=== PATIENT | female | born 2000 | race Caucasian/White ===

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

== ENCOUNTER 2019-03-05 11:00 | Emergency (ER) | payer MEDICAID ==
--- NOTE | 2019-03-05 11:15 | ER Document Report ---
ED Medical Screen (RME) - General Chief Complaint: Itching Stated Complaint: BODY PAIN,ITCHING Time Seen by Provider: 03/05/19 11:12 Mode of Arrival: Ambulatory Information source: Patient Notes: Patient is an otherwise healthy 18-year-old female presenting to the emergency department chief complaint of all over body aches and itching. Patient does report recently being treated for a kidney infection and had started multiple new medications. Denies any nausea, vomiting, diarrhea, cough congestion or sore throat. Patient does not appear to be in any acute distress, she is breathing equal and unlabored, ambulating with steady gait. I have greeted and performed a rapid initial assessment of this patient. A comprehensive ED assessment and evaluation of the patient, analysis of test results and completion of the medical decision making process will be conducted by additional ED providers. I have specifically instructed the patient or family members with the patient to immediately return to any nursing staff should anything change in the patient's condition or with their chief complaint. This medical record was dictated with voice recognizing software. There may be grammatical, syntax errors that are unintended. TRAVEL OUTSIDE OF THE [place] IN LAST 30 DAYS: No - Related Data Allergies/Adverse Reactions: Sulfa (Sulfonamide Antibiotics) Allergy (Verified 03/05/19 11:05) Past Medical History - Social History Chew tobacco use (# tins/day): No Frequency of alcohol use: Social Drug Abuse: None Renal/ Medical History: Denies: Hx Peritoneal Dialysis Past Surgical History: Reports: Hx Tonsillectomy Physical Exam - Vital signs Vitals: Temp Pulse Resp BP Pulse Ox 97.7 F 69 18 107/62 99 03/05/19 11:05 03/05/19 11:05 03/05/19 11:05 03/05/19 11:05 03/05/19 11:05 Course - Vital Signs Vital signs: Temp Pulse Resp BP Pulse Ox 97.7 F 69 18 107/62 99 03/05/19 11:05 03/05/19 11:05 03/05/19 11:05 03/05/19 11:05 03/05/19 11:05
[2019-03-05 11:34] LABS: ABSOLUTE EOSINOPHILS # (AUTO) 0.1 10^3/uL (0.0-0.6); ABSOLUTE LYMPHOCYTES (AUTO) 2.4 10^3/uL (0.5-4.7); ABSOLUTE MONOCYTES (AUTO) 0.6 10^3/uL (0.1-1.4); ABSOLUTE NEUT (AUTO) 3.4 10^3/uL (1.7-8.2); BASOPHILS % (AUTO) 0.7 % (0-2); EOSINOPHILS % (AUTO) 1.1 % (0-6); HEMATOCRIT 38.4 % (36.0-47.0); HEMOGLOBIN 12.8 g/dL (12.0-15.5); LYMPHOCYTES % (AUTO) 36.4 % (13-45); MEAN CORPUSCULAR HEMOGLOBIN 29.9 pg (27.0-33.4); MEAN CORPUSCULAR HGB CONC 33.4 g/dL (32.0-36.0); MEAN CORPUSCULAR VOLUME 90 fl (80-97); MONOCYTES % (AUTO) 9.4 % (3-13); PLATELET COUNT 268 10^3/uL (150-450); RED BLOOD COUNT 4.29 10^6/uL (3.72-5.28); RED CELL DISTRIBUTION WIDTH 14.3 % (11.5-14.0); SEGMENTED NEUTROPHILS % (AUTO) 52.4 % (42-78); TOTAL CELLS COUNTED % (AUTO) 100 %; WHITE BLOOD COUNT 6.5 10^3/uL (4.0-10.5)
[2019-03-05 11:46] LABS: APPEARANCE,URINE CLEAR; BILIRUBIN,URINE NEGATIVE (NEGATIVE); COLOR,URINE YELLOW; GLUCOSE, URINE NEGATIVE (NEGATIVE); KETONES,URINE NEGATIVE (NEGATIVE); PROTEIN,URINE NEGATIVE (NEGATIVE); URINE SPECIFIC GRAVITY 1.014; UROBILINOGEN,URINE NEGATIVE mg/dL (<2.0)
[2019-03-05 11:58] LABS: ALBUMIN 4.4 g/dL (3.7-5.6); ALKALINE PHOSPHATASE 35 U/L (50-135); ANION GAP 10 (5-19); ASPARTATE AMINO TRANSFERASE 22 U/L (5-30); BILIRUBIN,TOTAL 0.4 mg/dL (0.2-1.3); BLOOD UREA NITROGEN 10 mg/dL (7-20); CALCIUM 9.9 mg/dL (8.4-10.2); CARBON DIOXIDE 25 mmol/L (22-30); CHLORIDE 105 mmol/L (98-107); GLUCOSE 88 mg/dL (75-110); POTASSIUM 3.9 mmol/L (3.6-5.0); TOTAL PROTEIN 7.4 g/dL (6.3-8.2)
[2019-03-05 13:12] VITALS: BP 108/64
--- NOTE | 2019-03-05 13:19 | ER Document Report ---
HPI - HPI Patient complains to provider of: itching Time Seen by Provider: 03/05/19 11:12 Pain Level: 3 Context: 18-year-old otherwise healthy female with history of 1 disorder not currently taking medications presents with multiple chief complaints. She states that she has had itching since she was prescribed Keflex when seen here 10 days ago, complains of generalized body aches, complained of chest pain this morning. Patient was prescribed Keflex for a urinary tract infection the , fill the prescription, started taking medication for 2 days and started developing itching with no rash. She stopped taking the medication but states that the itching has persisted. Patient is unsure if she has used a different laundry soap, unsure of the type of bath bombs that she uses, and is generally unsure if there have been any environmental changes. Patient also said that she had tingling in all 4 of her extremities with some numbness but endorses having anxiety and panic attacks. She was also complaining of some chest pain earlier today that resolved. No family history, no nausea or associated diaphoresis, no dyspnea on exertion or shortness of breath. - REPRODUCTIVE LMP: 02/2019 Reproductive: DENIES: : Past Medical History - General Information source: Patient - Social History Smoking Status: Current Some Day Smoker Chew tobacco use (# tins/day): No Frequency of alcohol use: Social Drug Abuse: None Family History: Reviewed & Not Pertinent Patient has suicidal ideation: No Patient has homicidal ideation: No Renal/ Medical History: Denies: Hx Peritoneal Dialysis Past Surgical History: Reports: Hx Tonsillectomy Vertical Provider Document - CONSTITUTIONAL Notes: PHYSICAL EXAMINATION: Reviewed vital signs and charting by RN GENERAL: Alert, interacts well. No acute distress. HEAD: Normocephalic, atraumatic. EYES: Pupils equal and round. Extraocular movements intact. ENT: Oral mucosa moist, tongue midline. NECK: Full range of motion. Trachea midline. LUNGS: Clear to auscultation bilaterally, no wheezes, rales, or rhonchi. No respiratory distress. HEART: Regular rate and rhythm. No murmur ABDOMEN: soft, non-tender. No distention. Bowel sounds present EXTREMITIES: Moves all 4 extremities spontaneously. No edema, No cyanosis. PSYCH: Normal affect, normal mood. SKIN: Warm, dry, normal turgor. No rashes or lesions noted. - INFECTION CONTROL TRAVEL OUTSIDE OF THE [place] IN LAST 30 DAYS: No Course - Re-evaluation Re-evalutation: 03/05/19 13:16 Patient is well-appearing in no acute distress. There is no evidence of a rash anywhere on her body, no nausea or vomiting, no stridor or wheezing heard on auscultation. This itching is most likely unrelated to medication as she discontinued it 8 days ago. I think there is an anxiety component with this patient as she admitted to being bipolar that is untreated and has anxiety. She is a poor historian with respect to recall about change in foods, using her mother's laundry soap, or other environmental factors. I have explained to the patient that her work-up was normal and I do not suspect any dangerous condition and she should attempt to take Benadryl 50 mg for the itching and she can continue to take famotidine twice daily. I gave her strict return precautions she is stable for discharge. - Vital Signs Vital signs: Temp Pulse Resp BP Pulse Ox 98.5 F 75 18 108/64 100 03/05/19 13:10 03/05/19 13:10 03/05/19 13:10 03/05/19 13:10 03/05/19 13:10 - Laboratory Result Diagrams: 03/05/19 11:20 03/05/19 11:20 Laboratory results interpreted by me: 03/05/19 03/05/19 03/05/19 11:20 11:20 11:20 RDW 14.3 H Alkaline Phosphatase 35 L Urine Ascorbic Acid 40 H Discharge - Discharge Clinical Impression: Itching Condition: Good Disposition: HOME, SELF-CARE Additional Instructions: You were seen here in the emergency department today for itching. Your work-up was overall very reassuring and it is unclear why your itching but it could be related to environmental factors. I do not think it is related to the Keflex that you were taking. You can take Benadryl 25 or 50 mg as needed every 8 hours for itching and you can also take the famotidine twice per day to help with the itching as well. It is important that you establish a primary care doctor in the area. Please return to the emergency department if you develop intractable nausea or vomiting, hives, and/or acute respiratory distress or stridor with the symptoms. This is a sign of an anaphylactic reaction. If you have any other c oncerns please do not hesitate to return to the emergency department.
== END 2019-03-05 13:23 | disposition home or self-care (01) ==
LOC: ER 11:00
DX: L29.9 Pruritus, unspecified (principal); R07.9 Chest pain, unspecified; R20.2 Paresthesia of skin; R20.0 Anesthesia of skin; F17.200 Nicotine dependence, unspecified, uncomplicated
CPT/HCPCS: 36415; 80053; 81001; 81025; 85025; 99283

== ENCOUNTER 2020-01-16 03:13 | Emergency (ER) | payer MEDICAID ==
[2020-01-16] MEDS ORDERED: DEXAMETHASONE SOD PHOS INJ 10 MG/1 ML VIAL IM ONE (05:09)
[2020-01-16] MEDS ORDERED: KETOROLAC TROMETHAMINE 60 MG/2 ML SDV IM ONE (05:10)
--- NOTE | 2020-01-16 05:12 | ER Document Report ---
HPI - HPI Time Seen by Provider: 01/16/20 04:25 Pain Level: 5 Context: Patient is a 19-year-old female that comes emergency department for chief complaint of worsening sore throat over the past couple of days. She states that when she swallows she hurts all the way up into her ears. She denies ear pain otherwise, she denies congestion, cough, fever. She denies any obvious sick contacts. She states she has been tested for COVID-19 3 different times most recently about a week ago. She denies abdominal pain. She denies any daily medications. She denies . She has had a tonsillectomy. - CONSTITUTIONAL Constitutional: DENIES: Fever, Chills - EENT EENT: REPORTS: Sore Throat, Ear Pain - REPRODUCTIVE Reproductive: DENIES: : Past Medical History - General Information source: Patient - Social History Smoking Status: Former Smoker Chew tobacco use (# tins/day): No Frequency of alcohol use: None Drug Abuse: None Lives with: Family Family History: Reviewed & Not Pertinent Renal/ Medical History: Denies: Hx Peritoneal Dialysis Psychiatric Medical History: Reports: Hx Bipolar Disorder, Hx Depression Past Surgical History: Reports: Hx Tonsillectomy - Immunizations Hx Diphtheria, Pertussis, Tetanus Vaccination: Yes Vertical Provider Document - CONSTITUTIONAL General Appearance: WD/WN, No Apparent Distress - INFECTION CONTROL TRAVEL OUTSIDE OF THE [place] IN LAST 30 DAYS: No - HEENT HEENT: Atraumatic, Normocephalic. negative: Normal ENT Exam - Erythema the posterior pharynx, no tonsils are noted, uvula normal, otherwise unremarkable. Ears unremarkable bilaterally. - NECK Neck: Other - Bilateral anterior cervical and mildly posterior cervical adenopathy. No submandibular swelling. Otherwise unremarkable. - RESPIRATORY Respiratory: Breath Sounds Normal, No Respiratory Distress - CARDIOVASCULAR Cardiovascular: Regular Rate, Regular Rhythm - GI/ABDOMEN Gastrointestinal: Abdomen Soft, Abdomen Non-Tender - BACK Back: Normal Inspection - MUSCULOSKELETAL/EXTREMETIES Musculoskeletal/Extremeties: MAEW, FROM, Non-Tender - NEURO Level of Consciousness: Awake, Alert, Appropriate Motor/Sensory: No Motor Deficit, No Sensory Deficit - DERM Integumentary: Warm, Dry, No Rash Course - Re-evaluation Re-evalutation: Patient with anterior cervical adenopathy, some bilateral posterior cervical adenopathy, erythema of the posterior pharynx, otherwise unremarkable. No abdominal pain on exam, patient has had a tonsillectomy. Strep is negative. I offered COVID-19 testing but patient declined because of frequent repeated testing. Discussed how this is possibly viral, discussed quarantine, discussed treatment, given Decadron and Toradol, discussed return precautions. Patient states understanding and agreement. - Vital Signs Vital signs: Temp Pulse Resp BP Pulse Ox 98.6 F 99 18 109/54 L 96 01/16/20 03:24 01/16/20 03:24 01/16/20 03:24 01/16/20 03:24 01/16/20 03:24 Discharge - Discharge Clinical Impression: Cervical adenopathy Pharyngitis Qualifiers: Pharyngitis/tonsillitis etiology: unspecified etiology Qualified Code(s): J02.9 - Acute pharyngitis, unspecified Condition: Stable Disposition: HOME, SELF-CARE Additional Instructions: Your strep test is negative, your evaluation is consistent with most likely a viral illness causing your throat pain and lymph node swelling. You have been treated with Decadron, take 600 mg of ibuprofen every 6 hours and 1000 mg of Tylenol at every 6 hours for your pain, drink plenty of fluids, rest. Symptoms should simply resolve. We do have a throat culture growing at all lab and you will be contacted for any concerning results. Follow-up with primary care. Return for any concerning symptoms including difficulty swallowing or breathing, spiking fevers, severe abdominal pain, or any other concerning symptoms. Referrals: ANTOINE VILLASEÑOR PA-C [Primary Care Provider] - Follow up as needed
[2020-01-16 05:24] VITALS: BP 110/58
== END 2020-01-16 05:30 | disposition home or self-care (01) ==
LOC: ER 03:13
DX: J02.9 Acute pharyngitis, unspecified (principal); R59.0 Localized enlarged lymph nodes; R13.10 Dysphagia, unspecified; Z87.891 Personal history of nicotine dependence
CPT/HCPCS: 99284; 96372; 87070; 87880; J1885; J1100